=== PATIENT | female | born 1980 | race Caucasian/White ===

== ENCOUNTER → 2018-12-29 01:49 | Observation (INO) ==
[2018-12-29 00:36] LABS: Amphetamine Screen,Urine Negative ng/mL (Cutoff=1000); Barbiturate Screen,Urine Positive ng/mL (Cutoff=200); Benzodiazepines Screen,Urine Negative ng/mL (Cutoff=200); Cannabinoid Screen,Urine Negative ng/mL (Cutoff = 50); Cocaine Screen,Urine Negative ng/mL (Cutoff= 300); Opiate Screen,Urine Negative ng/mL (Cutoff=300); Phencyclidine Screen,Urine Negative ng/mL (Cutoff=25)
[2018-12-29 00:53] LABS: Bilirubin,Urine Negative (Negative); Blood,Urine Negative (Negative); Clarity,Urine Turbid (Clear); Color,Urine Dark Yellow (Yellow); Glucose,Urine (UA) >=1000 mg/dL (Normal); Ketones,Urine Negative (Negative); Leukocyte Esterase,Urine Negative (Negative); Nitrite,Urine Negative (Negative); Protein,Urine 30 mg/dL (Neg-Trace); Specific Gravity,Urine > 1.030 (1.010-1.025); Urobilinogen,Urine Normal (Normal)
[2018-12-29 01:05] LABS: Squamous Epithelial Cell,Urine Moderate per lpf (None-Few)
[2018-12-29 01:06] LABS: Bacteria,Urine Few per hpf (None-Few); Calcium Oxalate Crystals,Urine Present
[2018-12-29 01:07] LABS: WBC,Urine 0-3 per hpf (0-3); Yeast,Urine Few per hpf (None Seen)
== END | disposition home or self-care (01) ==
LOC: 1NENULAB
PROVIDERS: ADMIT Registered Nurse; ATTEND Registered Nurse

== ENCOUNTER 2019-03-10 17:58 | Inpatient (IN) ==
[2019-03-10 16:18] LABS: Glucose 131 mg/dL (70-105)
[2019-03-10 17:00] LABS: Estimated Average Glucose 169 mg/dl
[2019-03-10 17:15] LABS: Amphetamine Screen,Urine Negative ng/mL (Cutoff=1000); Barbiturate Screen,Urine Negative ng/mL (Cutoff=200); Benzodiazepines Screen,Urine Negative ng/mL (Cutoff=200); Cannabinoid Screen,Urine Negative ng/mL (Cutoff = 50); Cocaine Screen,Urine Negative ng/mL (Cutoff= 300); Creatinine,Urine 276 mg/dL; Opiate Screen,Urine Negative ng/mL (Cutoff=300); Phencyclidine Screen,Urine Negative ng/mL (Cutoff=25); Protein/Creatinine Ratio,Urine 0.24 mg/mg (0.00-0.20)
[~2019-03-10 17:58] MED LIST: *HR* Nalbuphine 10 MG/ML AMPUL IVP PRN; Epidural Premix (fent/bupiv) 110 ML EP SCH; Famotidine 20 MG/2 ML VIAL IVP PRN; Lidocaine 1% 20 ML MDV ID PRN; Metoclopramide 10 MG/2 ML VIAL IVP PRN; Naloxone 0.4 MG/ML INJ IVP PRN; Ondansetron 4 MG/2 ML VIAL IVP PRN; Ringers Solution, Lactated 1,000 ML IVC ONE; Ringers Solution, Lactated 1,000 ML IVC SCH; Ringers Solution, Lactated 1,000 ML ONE
[2019-03-10 18:13] LABS: Basophils % 0.4 %; Eosinophils # 0.2 K/mcL (0.0-0.6); Eosinophils % 1.6 %; Hematocrit 38.8 % (35.3-44.9); Hemoglobin 12.9 g/dL (11.5-15.4); Immature Granulocytes % 0.3 % (0-4); Lymphocytes # 2.1 K/mcL (0.6-4.6); Lymphocytes % 19.8 %; Mean Corpuscular HGB Conc 33.2 g/dL (31.6-35.5); Mean Corpuscular Volume 87.2 fL (83.0-100.0); Mean Platelet Volume 12.7 fL (9.4-12.4); Monocytes # 0.9 K/mcL (0.0-1.3); Monocytes % 8.5 %; Neutrophils # 7.2 K/mcL (1.6-8.9); Platelet Count 198 K/mcL (140-400); Red Blood Count 4.45 M/mcL (3.82-4.97); Red Cell Distribution Width 14.3 % (11.5-14.5); Segmented Neutrophils % 69.4 %; White Blood Count 10.4 K/mcL (4.3-11.1)
[2019-03-10 18:28] LABS: Alanine Aminotransferase 45 Units/L (7-52); Aspartate Amino Transferase 37 Units/L (13-39); BUN/Creatinine Ratio 14 (6-26); Blood Urea Nitrogen 8 mg/dL (6-20); Lactate Dehydrogenase 157 Units/L (140-271); Uric Acid 5.1 mg/dL (2.3-7.6); eGFR For African Americans > 60 (> 60); eGFR For Non-African Americans > 60 (> 60)
[2019-03-10 18:28] LABS: Amphetamine Screen,Urine Negative ng/mL (Cutoff=1000); Barbiturate Screen,Urine Negative ng/mL (Cutoff=200); Benzodiazepines Screen,Urine Negative ng/mL (Cutoff=200); Cannabinoid Screen,Urine Negative ng/mL (Cutoff = 50); Cocaine Screen,Urine Negative ng/mL (Cutoff= 300); Opiate Screen,Urine Negative ng/mL (Cutoff=300); Phencyclidine Screen,Urine Negative ng/mL (Cutoff=25)
[2019-03-10] MEDS ORDERED: Ondansetron 4 MG/2 ML VIAL ONE (20:00)
[2019-03-10] MEDS ORDERED: EPHEDrine 50 MG/ML VIAL ONE (20:00)
[2019-03-10] MEDS ORDERED: *HR* Morphine Sulfate/PF 10 MG/10 ML AMPUL ONE (20:00)
[2019-03-10] MEDS ORDERED: *HR* FentaNYL (PF) 100 MCG/2 ML VIAL ONE (20:00)
[2019-03-10] MEDS ORDERED: *HR* Oxytocin 10 UNIT/ML VIAL IM ONE (20:01)
[2019-03-10] MEDS ORDERED: Ringers Solution, Lactated 1,000 ML ONE (20:06)
[2019-03-10] MEDS ORDERED: *HR* HYDROmorphone (PF) 1 MG/ML SYRINGE IVP PRN ×2 (20:16)
[2019-03-10] MEDS ORDERED: *HR* Meperidine 25 MG/ML SYRINGE IVP PRN (20:16)
[2019-03-10] MEDS ORDERED: Ondansetron 4 MG/2 ML VIAL IVP PRN (20:16)
[2019-03-10] MEDS ORDERED: *HR* Promethazine 25 MG/ML VIAL IVP PRN (20:16)
[2019-03-10] MEDS ORDERED: Ondansetron 4 MG/2 ML VIAL IVP ONE (20:16)
[2019-03-10] MEDS ORDERED: Oxytocin 20 units/ LR 1000 mL 20 UNIT/1,000 ML BAG IVC ONE (22:39)
[2019-03-11] MEDS ORDERED: Dextrose Gel 15 GM/37.5 ML TUBE PO PRN ×2 (00:38)
[2019-03-11] MEDS ORDERED: Metoclopramide 10 MG/2 ML VIAL IVP PRN (00:38)
[2019-03-11] MEDS ORDERED: *HR* Dextrose 50 % in Water (Syg) 50 ML SYRINGE IVP PRN (00:38)
[2019-03-11] MEDS ORDERED: Sennosides 8.6 MG TABLET PO PRN (00:38)
[2019-03-11] MEDS ORDERED: Rho Immune Globulin 1,500 UNIT SYRINGE IM ONE ×2 (00:38→16:32)
[2019-03-11] MEDS ORDERED: *HR* OxyCODONE/APAP 10/325 TABLET PO PRN (00:38)
[2019-03-11] MEDS ORDERED: Oxytocin 20 units/ LR 1000 mL 20 UNIT/1,000 ML BAG IVC SCH (00:38)
[2019-03-11] MEDS ORDERED: Insulin LISPRO 300 UNITS/3 ML VIAL SQ SCH (00:38)
[2019-03-11] MEDS ORDERED: 0.9 % Sodium Chloride 1,000 ML IVC SCH (00:38)
[2019-03-11] MEDS ORDERED: Simethicone 80 MG TAB.CHEW PO PRN (00:38)
[2019-03-11] MEDS ORDERED: D5% in Water 1,000 ML IVC PRN (00:38)
[2019-03-11] MEDS ORDERED: Ondansetron 4 MG/2 ML VIAL IVP PRN (00:38)
[2019-03-11] MEDS: Clindamycin 900 MG/50 ML 900 MG/50 ML IV.SOLN IVPB SCH ×3 (01:35→15:46)
[2019-03-11] MEDS: *HR* OxyCODONE/APAP 5/325 TABLET PO PRN ×2 (05:34→14:49)
[2019-03-11] MEDS: Ibuprofen 600 MG TABLET PO PRN ×3 (05:35→20:10)
[2019-03-11 07:03] LABS: Basophils % 0.3 %; Eosinophils # 0.1 K/mcL (0.0-0.6); Eosinophils % 1.4 %; Hematocrit 33.9 % (35.3-44.9); Immature Granulocytes % 0.3 % (0-4); Lymphocytes # 1.9 K/mcL (0.6-4.6); Mean Corpuscular HGB Conc 32.4 g/dL (31.6-35.5); Mean Corpuscular Hemoglobin 28.9 pg (28.0-33.3); Mean Platelet Volume 12.3 fL (9.4-12.4); Monocytes # 0.7 K/mcL (0.0-1.3); Monocytes % 7.1 %; Neutrophils # 7.3 K/mcL (1.6-8.9); Platelet Count 134 K/mcL (140-400); Red Blood Count 3.81 M/mcL (3.82-4.97); Red Cell Distribution Width 14.4 % (11.5-14.5); Segmented Neutrophils % 71.9 %; White Blood Count 10.1 K/mcL (4.3-11.1)
[2019-03-11] MEDS: Prenatal Vit/FA 1 EACH TABLET PO SCH (08:18)
[2019-03-11] MEDS ORDERED: *HR* Metformin 500 MG TABLET PO SCH ×2 (15:03→15:45)
[2019-03-11] MEDS: *HR* Metformin 500 MG TABLET PO SCH ×2 (15:57→23:58)
[2019-03-12] MEDS: Ibuprofen 600 MG TABLET PO PRN (03:11)
[2019-03-12] MEDS: *HR* OxyCODONE/APAP 5/325 TABLET PO PRN ×2 (03:11→07:48)
[2019-03-12 07:42] VITALS: BP 145/84
[2019-03-12] MEDS: Prenatal Vit/FA 1 EACH TABLET PO SCH (07:49)
[2019-03-12] MEDS ORDERED: *HR* Metformin 500 MG TABLET PO SCH (08:00)
== END 2019-03-12 10:00 | disposition home or self-care (01) | DRG 540 ==
LOC: 1NENULAB → 1NENUOBS 03-11 00:37
PROVIDERS: ADMIT Obstetrics & Gynecology; ATTEND Obstetrics & Gynecology